=== PATIENT | female | born 1935 | race Caucasian/White ===

== ENCOUNTER 2017-01-28 14:14 | Emergency (ER) | payer OTHER ==
[~2017-01-28] VITALS: Ht 162.6 cm; Wt 74.4 kg
[~2017-01-28 14:14] MED LIST: AMLO10TA PO; HYDR-4452 PO; LISI-420 PO; PRED10TA5 PO; TRAZ-286 PO
[2017-01-28 14:55] VITALS: BP 125/63
--- NOTE | 2017-01-28 15:00 | NUR ---
PATIENT TAKEN TO BED #5 AMBULATED
--- NOTE | 2017-01-28 15:19 | NUR ---
PATIENT PRESENTS TO ED WITH C/O LEFT SHOULDER AND FLANK PAIN; CHRONIC CONDITION,WORST TODAY. DENIES INJURY. HX: HTN,BACK ISSUES; DENIES N/V/D; SKIN IS PINK/WARM/DRY; AAOX4 WITH EVEN AND STEADY GAIT; LUNGS CLEAR BL; HR EVEN AND REGULAR; PT DENIES ANY FEVER, CP, SOB, OR COUGH AT THIS TIME; PATIENT STATES PAIN OF 9/10 AT THIS TIME; VSS; PATIENT POSITIONED FOR COMFORT; HOB ELEVATED; BEDRAILS UP X2; BED DOWN. ER MD MADE AWARE OF PT STATUS.
[2017-01-28] MEDS ORDERED: NACL 0.9% 1,000 ML IV ONE (15:40)
[2017-01-28] MEDS ORDERED: HYDROcodone/APAP 5/325 MG 1 TAB TAB PO ONE (15:45)
[2017-01-28 16:12] LABS: BASOPHILS # (AUTO) 0.1 K/uL (0.00-0.22); BASOPHILS % (AUTO) 1.3 % (0.0-2.0); EOSINOPHILS # (AUTO) 0.2 K/uL (0-0.4); EOSINOPHILS % (AUTO) 2.9 % (0.0-4.0); HEMATOCRIT 43.7 % (36-48); HEMOGLOBIN 14.6 g/dL (12.0-16.0); LYMPHOCYTES # (AUTO) 1.8 K/uL (2.5-16.5); LYMPHOCYTES % (AUTO) 30.1 % (20.5-51.1); MEAN CORPUSCULAR HEMOGLOBIN 31 pg (27-31); MEAN CORPUSCULAR HGB CONC 34 g/dL (33-37); MEAN CORPUSCULAR VOLUME 91 fL (80-94); MONOCYTES # (AUTO) 0.4 K/uL (0.8-1.0); MONOCYTES % (AUTO) 7.2 % (1.7-9.3); NEUTROPHILS # (AUTO) 3.3 K/uL (1.8-7.7); NEUTROPHILS % (AUTO) 58.5 % (42.2-75.2); PLATELET COUNT (AUTO) 198 K/uL (140-450); RED BLOOD CELL COUNT(AUTO) 4.81 MIL/uL (4.20-5.40); RED CELL DISTRIBUTION WIDTH 11.5 % (11.6-13.7); WHITE BLOOD COUNT (AUTO) 5.8 K/uL (4.8-10.8)
[2017-01-28 16:22] LABS: ANION GAP 12.9 (8-16); CALCIUM 9.2 mg/dL (8.5-10.1); CARBON DIOXIDE 29.7 mmol/L (21-32); CHLORIDE 102 mmol/L (98-107); CREATININE 1.2 mg/dL (0.6-1.3); GLUCOSE 102 mg/dL (74-106); POTASSIUM 3.6 mmol/L (3.5-5.1); SODIUM SERUM 141 mmol/L (136-145); UREA NITROGEN, BLOOD 16 mg/dL (7-18)
--- NOTE | 2017-01-28 16:25 | NUR ---
Patient back from CT via wheelchair per tech.
[2017-01-28 16:28] LABS: ALANINE AMINOTRANSFERASE 21 U/L (14-59); ALBUMIN 3.5 g/dL (3.4-5.0); ALKALINE PHOSPHATASE 61 U/L (46-116); ASPARTATE AMINOTRANSFERASE 15 U/L (15-37); TOTAL BILIRUBIN 0.4 mg/dL (0.0-1.0); TOTAL PROTEIN, SERUM 6.9 g/dL (6.4-8.2)
--- NOTE | 2017-01-28 16:36 | NUR ---
PT REFUSE IV, DR CAI NOTIFIED
[2017-01-28 16:42] LABS: PARTIAL THROMBOPLASTIN TIME 27.2 secs (22-35.6); PROTHROMBIN TIME 10.6 secs (10.8-13.4)
[2017-01-28] MEDS ORDERED: KETOROLAC 60 MG/2 ML VIAL IM ONE (17:25)
[2017-01-28 17:55] VITALS: BP 118/66
--- NOTE | 2017-01-28 17:55 | NUR ---
Patient discharged with v/s stable. Written and verbal after care instructions given and explained. Patient alert, oriented and verbalized understanding of instructions. Ambulatory with steady gait. All questions addressed prior to discharge. ID band removed. Patient advised to follow up with PMD. Rx of PERCOCET given. Patient educated on indication of medication including possible reaction and side effects. Opportunity to ask questions provided and answered.
== END 2017-01-28 17:55 | disposition home or self-care (01) ==
LOC: MED 14:14
DX: M25.512 Pain in left shoulder (principal); R94.31 Abnormal electrocardiogram [ECG] [EKG]; I10 Essential (primary) hypertension; J44.9 Chronic obstructive pulmonary disease, unspecified; E11.9 Type 2 diabetes mellitus without complications; Z86.73 Personal history of transient ischemic attack (TIA), and cerebral infarction without residual deficits; Z79.899 Other long term (current) drug therapy; Z90.49 Acquired absence of other specified parts of digestive tract
CPT/HCPCS: 36415; 71250; 80053; 85025; 85610; 85730; 93005; 96372; 99284; J1885; J7030

== ENCOUNTER 2023-06-06 13:02 | Emergency (ER) | payer OTHER ==
[~2023-06-06] VITALS: Ht 162.6 cm; Wt 59.0 kg
[~2023-06-06 13:02] MED LIST changes: -HYDR-4452 PO; +HYDR-5191 PO; -LISI-420 PO; +LISI20TA30 PO; -TRAZ-286 PO; +TRAZ-343 PO
[2023-06-06 13:36] VITALS: BP 155/79; PULSE 74; RESP 20; TEMP 98.7; O2SAT 93
[2023-06-06 14:35] LABS: BASOPHILS % (AUTO) 0.4 % (0.0-2.0); EOSINOPHILS # (AUTO) 0.2 K/uL (0-0.4); EOSINOPHILS % (AUTO) 3.1 % (0.0-4.0); HEMATOCRIT 37.9 % (36-48); HEMOGLOBIN 12.9 g/dL (12.0-16.0); LYMPHOCYTES # (AUTO) 1.5 K/uL (2.5-16.5); LYMPHOCYTES % (AUTO) 25.3 % (20.5-51.1); MEAN CORPUSCULAR HEMOGLOBIN 31 pg (27-31); MEAN CORPUSCULAR HGB CONC 34 g/dL (33-37); MEAN CORPUSCULAR VOLUME 90.5 fL (80-94); MONOCYTES # (AUTO) 0.5 K/uL (0.8-1.0); MONOCYTES % (AUTO) 8.8 % (1.7-9.3); NEUTROPHILS # (AUTO) 3.7 K/uL (1.8-7.7); NEUTROPHILS % (AUTO) 62.4 % (42.2-75.2); PLATELET COUNT (AUTO) 219 K/uL (140-450); RED BLOOD CELL COUNT(AUTO) 4.19 MIL/uL (4.20-5.40); WHITE BLOOD COUNT (AUTO) 5.9 K/uL (4.8-10.8)
[2023-06-06 14:49] LABS: ANION GAP 10.7 (8-16); CARBON DIOXIDE 31.5 mmol/L (21-32); CHLORIDE 101 mmol/L (98-107); CREATININE 1.4 mg/dL (0.6-1.3); GLUCOSE 121 mg/dL (74-106); POTASSIUM 4.2 mmol/L (3.5-5.1); SODIUM SERUM 139 mmol/L (136-145); UREA NITROGEN, BLOOD 31 mg/dL (7-18)
[2023-06-06] MEDS ORDERED: predniSONE 20 MG TAB PO ONE (15:10)
[2023-06-06] MEDS ORDERED: ALBUTEROL 0.083% 2.5 MG/3 ML NEBU INH ONE (15:10)
[2023-06-06] MEDS ORDERED: IPRATROPIUM 0.02% 0.5 MG/2.5 ML NEBU INH ONE (15:10)
[2023-06-06] MEDS ORDERED: PRED20TA5 PO (16:08)
[2023-06-06] MEDS ORDERED: AZIT250T3 PO (16:08)
[2023-06-06] MEDS ORDERED: ALBUTEROL SULFATE/IPRATROPIU 3 ML SOL IH ONE ×2 (16:23→16:25)
[2023-06-06 16:26] VITALS: PULSE 62; RESP 16; O2SAT 94
== END 2023-06-06 16:46 | disposition home or self-care (01) ==
LOC: MED 13:02
DX: J44.1 Chronic obstructive pulmonary disease with (acute) exacerbation (principal); M71.22 Synovial cyst of popliteal space [Baker], left knee; E11.9 Type 2 diabetes mellitus without complications; I10 Essential (primary) hypertension; Z86.73 Personal history of transient ischemic attack (TIA), and cerebral infarction without residual deficits; Z79.899 Other long term (current) drug therapy; Z79.2 Long term (current) use of antibiotics
CPT/HCPCS: 36415; 71045; 80048; 83880; 84484; 85025; 93005; 93971; 94640; 99285; J7512; Q0092

== ENCOUNTER 2023-12-01 10:22 | Emergency (ER) | payer OTHER ==
[~2023-12-01] VITALS: Ht 172.7 cm; Wt 81.6 kg
[~2023-12-01 10:22] MED LIST changes: +ALPR0.252 PO; -AMLO10TA PO; +ASPI-1856 PO; +BISA-28 PO; +CEFD300C3 PO; +CRAN450T5 PO; +DULO60EC1 PO; +FAMO-90 PO; +FURO40TA9 PO; +GABA100C PO; -HYDR-5191 PO; +LISI-953 PO; -LISI20TA30 PO; +LOSA-269 PO; +METH1TAB50 PO; +NALO4SPR NS; +ONDA-188 PO; +OXYC-304 PO; -PRED10TA5 PO; +TIZA4CAP PO
[2023-12-01 10:23] VITALS: BP 171/71; PULSE 68; RESP 17; TEMP 97.6; O2SAT 98
[2023-12-01] MEDS ORDERED: levETIRAcetam 100 MG/ML VIAL IV ONE (11:28)
[2023-12-01] MEDS ORDERED: fentaNYL citrate 0.05 MG/ML VIAL ONE (12:06)
[2023-12-01 12:07] LABS: BASOPHILS % (AUTO) 0.4 % (0.0-2.0); EOSINOPHILS # (AUTO) 0.2 K/uL (0-0.4); HEMATOCRIT 32.3 % (36-48); HEMOGLOBIN 10.8 g/dL (12.0-16.0); LYMPHOCYTES # (AUTO) 0.9 K/uL (2.5-16.5); LYMPHOCYTES % (AUTO) 10.9 % (20.5-51.1); MEAN CORPUSCULAR HEMOGLOBIN 31 pg (27-31); MEAN CORPUSCULAR HGB CONC 33 g/dL (33-37); MEAN CORPUSCULAR VOLUME 92.3 fL (80-94); MONOCYTES # (AUTO) 0.7 K/uL (0.8-1.0); MONOCYTES % (AUTO) 8.7 % (1.7-9.3); NEUTROPHILS # (AUTO) 6.3 K/uL (1.8-7.7); PLATELET COUNT (AUTO) 194 K/uL (140-450); RED CELL DISTRIBUTION WIDTH 14.1 % (11.6-13.7); WHITE BLOOD COUNT (AUTO) 8.1 K/uL (4.8-10.8)
[2023-12-01] MEDS: fentaNYL citrate 0.05 MG/ML VIAL IVP ONE (12:08)
[2023-12-01] MEDS: levETIRAcetam 1,000 MG in NACL 0.9% 100 ML IV ONE (12:16)
[2023-12-01 12:21] LABS: ANION GAP 12.1 (8-16); CARBON DIOXIDE 32.4 mmol/L (21-32); CHLORIDE 98 mmol/L (98-107); CREATININE 2.4 mg/dL (0.6-1.3); GLUCOSE 129 mg/dL (74-106); POTASSIUM 5.5 mmol/L (3.5-5.1); SODIUM SERUM 137 mmol/L (136-145)
[2023-12-01 12:22] LABS: INR 0.95 (0.8-1.2); PARTIAL THROMBOPLASTIN TIME 25.2 secs (22-35.6)
[2023-12-01 12:29] LABS: UREA NITROGEN, BLOOD 64 mg/dL (7-18)
[2023-12-01 12:31] LABS: ALANINE AMINOTRANSFERASE 18 U/L (12-78); ALBUMIN 3.4 g/dL (3.4-5.0); ALKALINE PHOSPHATASE 66 U/L (50-136); ASPARTATE AMINOTRANSFERASE 17 U/L (15-37); BILIRUBIN,DIRECT 0.2 mg/dL (0.0-0.3); CREATINE KINASE, TOTAL 24 U/L (26-192); LACTIC ACID 0.9 mmol/L (0.4-2.0); TOTAL BILIRUBIN 0.7 mg/dL (0.0-1.0); TOTAL PROTEIN, SERUM 6.9 g/dL (6.4-8.2)
[2023-12-01] MEDS ORDERED: ONDANSETRON 4 MG/2 ML VIAL ONE (12:37)
[2023-12-01] MEDS: LABETALOL 20 MG/4 ML VIAL IVP ONE (12:39)
[2023-12-01] MEDS ORDERED: MORPHINE SULFATE 2 MG/ML SYR ONE (13:17)
[2023-12-01] MEDS: DEXTROSE 50% 50 ML SYR IVP ONE (13:42)
[2023-12-01] MEDS: MORPHINE SULFATE 4 MG/ML SYR IVP ONE (13:43)
[2023-12-01] MEDS: OSMITROL 25% 12.5 GM/50 ML VIAL IV ONE (13:44)
[2023-12-01] MEDS: INSULIN REGULAR, HUMAN 100 UNIT/ML VIAL IVP ONE (13:45)
[2023-12-01 13:50] VITALS: BP 190/79; PULSE 63; RESP 18; TEMP 97.6; O2SAT 100
[2023-12-01] MEDS: MORPHINE SULFATE 2 MG/ML SYR IVP ONE (13:51)
== END 2023-12-01 13:50 | disposition short-term general hospital (02) ==
LOC: MED 10:22
DX: S06.5XAA Traumatic subdural hemorrhage with loss of consciousness status unknown, initial encounter (principal); E87.5 Hyperkalemia; R41.82 Altered mental status, unspecified; J44.9 Chronic obstructive pulmonary disease, unspecified; E11.9 Type 2 diabetes mellitus without complications; I13.0 Hypertensive heart and chronic kidney disease with heart failure and stage 1 through stage 4 chronic kidney disease, or unspecified chronic kidney disease; N18.9 Chronic kidney disease, unspecified; I50.9 Heart failure, unspecified; N17.9 Acute kidney failure, unspecified; Z86.73 Personal history of transient ischemic attack (TIA), and cerebral infarction without residual deficits; Z79.899 Other long term (current) drug therapy; Z79.2 Long term (current) use of antibiotics; Z79.1 Long term (current) use of non-steroidal anti-inflammatories (NSAID); Z79.82 Long term (current) use of aspirin; W06.XXXA Fall from bed, initial encounter; Y93.89 Activity, other specified; Y92.89 Other specified places as the place of occurrence of the external cause; Y99.8 Other external cause status
CPT/HCPCS: 36415; 70450; 70486; 71045; 72125; 73560; 73590; 74176; 80048; 80076; 82550; 83605; 83880; 84484; 85025; 85610; 85730; 87040; 90471; 90715; 93005; 96365; 96375; 99291; 99292; J1815; J1953; J2150; J2270; J2405; J3010; J3490; Q0092; 99285